=== PATIENT | female | born 1955 | race Two or more races ===

== ENCOUNTER → 2024-04-26 | Outpatient (CLI) | payer OTHER, MEDICAID, SELFPAY ==
[2024-04-26 13:46] LABS: Creatinine MALB Rnd Ur 151 mg/dL (30-125)
[2024-04-26 14:00] LABS: Microalbumin Creat Ratio 655 mg/gCrea (<30); Microalbumin, Random Urine 989 mg/L (0-300)
[2024-04-26 14:10] LABS: Glucose Estimated Average 131 mg/dL (80-131); Hemoglobin A1C 6.2 % Hgb (4.8-6.0)
== END | disposition home or self-care (01) ==
PROVIDERS: PCP Family Medicine; Referring Provider Family Medicine; Visit Provider Family Medicine
DX: E11.65 Type 2 diabetes mellitus with hyperglycemia (principal)
CPT/HCPCS: 36415; 82043; 82570; 83036

== ENCOUNTER → 2024-08-03 | Outpatient (CLI) | payer MEDICARE, MEDICAID, SELFPAY ==
[2024-08-03 09:52] LABS: Basophils # (Auto) 0.1 Thou/mm3 (0.0-0.2); Basophils % (Auto) 1 % (0-2.5); Eosinophils # (Auto) 0.3 Thou/mm3 (0.0-0.5); Eosinophils % (Auto) 3 % (0-10); Hematocrit 43.2 % (36.0-46.0); Hemoglobin 13.9 g/dL (12.0-16.0); Immature Granulocytes % (Auto) 0 % (0-0); Immature Granulocytes Auto 0.04 Thou/mm3 (0.00-0.00); Lymphocytes # (Auto) 2.2 Thou/mm3 (1.0-4.8); Lymphocytes % (Auto) 20 % (10-50); Mean Corpuscular HGB Conc 32.2 g/dl (31.0-37.0); Mean Corpuscular Hemoglobin 27.3 pg (25.0-35.0); Mean Corpuscular Volume 85 fL (80-100); Monocytes # (Auto) 0.7 Thou/mm3 (0.0-0.8); Monocytes % (Auto) 6 % (0-12); Neutrophils # (Auto) 7.8 Thou/mm3 (1.8-7.7); Neutrophils % (Auto) 70 % (37-80); Nucleated Red Blood Cell % 0 /100 WBC (0); Platelet Count 338 Thou/mm3 (140-440); RDW Standard Deviation 41.8 fL (36.4-46.3); Red Blood Count 5.09 Miln/mm3 (4.00-5.20); White Blood Count 11.1 Thou/mm3 (3.6-11.0)
[2024-08-03 10:05] LABS: Glucose Estimated Average 146 mg/dL (80-131); Hemoglobin A1C 6.7 % Hgb (4.8-6.0)
[2024-08-03 10:30] LABS: Alanine Aminotransferase 11 U/L (10-49); Albumin, Serum 4.3 gm/dL (3.4-4.8); Albumin/Globulin Ratio 1.4 (1.2-2.2); Alkaline Phosphatase 93 U/L (46-116); Anion Gap 8 (7-16); Aspartate Amino Transferase 13 U/L (0-34); BUN/Creatinine Ratio 18 Ratio (12-20); Bilirubin,Total 0.4 mg/dL (0.3-1.2); Blood Urea Nitrogen 14 mg/dL (9-23); Carbon Dioxide 28.1 mMol/L (20.0-31.0); Cardiac Risk Estimate 2.5 RATIO (3.7-5.6); Chloride 107 mMol/L (98-107); Cholesterol 108 mg/dL (132-200); Creatinine (Component) 0.8 mg/dL (0.6-1.3); Globulin 3.1 gm/dL (2.3-3.5); Glucose 192 mg/dL (74-106); HDL Cholesterol 43 mg/dL (40-60); LDL Cholesterol,Calculated 32 mg/dL (0-130); Osmolality,Calculated 290 (275-295); Potassium 3.7 mMol/L (3.4-5.1); Sodium 143 mMol/L (136-145); Thyroid Stimulating Hormone 0.78 uIU/mL (0.55-4.78); Total Protein 7.4 gm/dL (5.7-8.2); Triglycerides 166 mg/dL (30-150); eGFR > 60 See Note
== END | disposition home or self-care (01) ==
LOC: COPL 08:51
PROVIDERS: PCP Family Medicine; Referring Provider Family Medicine; Visit Provider Family Medicine
DX: I10 Essential (primary) hypertension (principal); E11.21 Type 2 diabetes mellitus with diabetic nephropathy
CPT/HCPCS: 36415; 80053; 80061; 83036; 84443; 85025

== ENCOUNTER → 2024-11-10 | Outpatient (CLI) | payer MEDICARE, MEDICAID, SELFPAY ==
[2024-11-10 16:57] LABS: Glucose Estimated Average 160 mg/dL (80-131); Hemoglobin A1C 7.2 % Hgb (4.8-6.0)
== END | disposition home or self-care (01) ==
LOC: COPL 15:05
PROVIDERS: PCP Family Medicine; Referring Provider Family Medicine; Visit Provider Family Medicine
DX: Z00.00 Encounter for general adult medical examination without abnormal findings (principal); E11.65 Type 2 diabetes mellitus with hyperglycemia
CPT/HCPCS: 36415; 82043; 82570; 83036

== ENCOUNTER → 2024-11-11 | Outpatient (CLI) | payer MEDICARE, SELFPAY ==
[2024-11-11 15:09] LABS: Creatinine MALB Rnd Ur 33 mg/dL (30-125); Microalbumin Creat Ratio 882 mg/gCrea (<30); Microalbumin, Random Urine 291 mg/L (0-300)
== END | disposition home or self-care (01) ==
LOC: SLDO 13:15
PROVIDERS: Referring Provider Family Medicine; Visit Provider Family Medicine
DX: Z00.00 Encounter for general adult medical examination without abnormal findings (principal); E11.65 Type 2 diabetes mellitus with hyperglycemia
CPT/HCPCS: 82043; 82570

== ENCOUNTER → 2024-11-15 | Outpatient (CLI) | payer MEDICARE, SELFPAY ==
[2024-11-15 12:00] LABS: OBS Performed By LAB; OBS QC OK? Yes
[2024-11-15 13:55] LABS: OBS Developer Lot # 551749; Occult Blood, Stool Negative (Negative); Occult Blood, Stool #2 Negative (Negative); Occult Blood, Stool #3 Positive (Negative)
== END | disposition home or self-care (01) ==
LOC: SLDO 10:40
PROVIDERS: PCP Family Medicine; Referring Provider Family Medicine; Visit Provider Family Medicine
DX: Z00.00 Encounter for general adult medical examination without abnormal findings (principal)
CPT/HCPCS: 82270

== ENCOUNTER → 2024-12-01 | Outpatient (CLI) | payer MEDICARE, MEDICAID, SELFPAY ==
--- NOTE | 2024-12-01 13:30 | XR_ITS ---
Examination: Bone densitometry Date and time of exam:December 01, 2024 1321 hours INDICATIONS: Hysterectomy age 53 levothyroxine 5 years Technique: Lumbar spine and hip total bone mineralization values of an calculated. Peak reference and age match control results have been displayed. Findings: Lumbar spine total bone mineralization is0.948 gm/cm2. This is 0.9 standard deviations below peak reference. This is 1.1 standard deviations above age-matched controls. Hip total bone mineralization is 0.799 gm/cm2 This is 1.2 standard deviations below peak reference. This is 0.2 standard deviations above age-matched controls Impression: There is normal mineralization based on lumbar spine measurements. There is osteopenia based on hip measurements Lumbar mineralization is increase 0.7% compared with August 29, 2022 Hip mineralization is decreased 4.6% compared with August 29, 2022
--- NOTE | 2024-12-01 14:00 | XR_ITS ---
Examination: Screening digital mammography, bilateral Computer aided detection 3-D breast Tomosynthesis, bilateral Date and time of exam: December 01, 2024 1259 hours Compared to mammograms dating to February 25, 2013 Indication: Screening Technique: Nonmagnified MLO, CC views of the breasts to been obtained, reconstructed from 3-D Tomosynthesis images. R2 computer aided detection program utilized for evaluation of suspicious masses and/or abnormal calcifications. 3-D Tomosynthesis images obtained. Findings: Scattered areas of fibroglandular density. Benign vascular calcifications No interval suspicious masses Impression: BI-RADS category II: Benign Findings. Recommend 1 year follow-up mammogram.
== END | disposition home or self-care (01) ==
PROVIDERS: PCP Family Medicine; Referring Provider Family Medicine; Visit Provider Family Medicine
DX: Z12.31 Encounter for screening mammogram for malignant neoplasm of breast (principal); R92.323 Mammographic fibroglandular density, bilateral breasts; R92.1 Mammographic calcification found on diagnostic imaging of breast; M85.88 Other specified disorders of bone density and structure, other site
CPT/HCPCS: 77063; 77067; 77080

== ENCOUNTER 2025-01-20 09:10 | Day surgery (SDC) | payer OTHER, SELFPAY ==
--- NOTE | 2025-01-19 08:56 | EKG_ITS ---
[facility] Test Date: 2025-01-19 Pat Name: SISSY CERDA Department: Room: - Gender: Female Manager Event: [place] : 1955 Requested By: Lazaro Cooper Order Number: [id number] Reading MD: Lazaro Cooper Measurements Intervals [place] Rate: 70 P: -45 NE: 140 QRS: -17 QRSD: 99 T: 101 QT: 385 QTc: 416 Interpretive Statements ECTOPIC ATRIAL RHYTHM MINIMAL VOLTAGE CRITERIA FOR LVH, CONSIDER NORMAL VARIANT [MEETS CRITERIA IN ONE OF: R(aVL), S(V1), R(V5), R(V5/V6)+S(V1)] SEPTAL MYOCARDIAL INFARCTION , PROBABLY OLD [40+ ms Q WAVE IN V1/V2] No previous ECG available for comparison /[id number]/S0/[id number].pdf
[2025-01-19 09:00] VITALS: BMI 43.0
[2025-01-19 09:11] VITALS: BMI 43.0
[2025-01-19 11:15] LABS: Basophils # (Auto) 0.1 Thou/mm3 (0.0-0.2); Basophils % (Auto) 1 % (0-2.5); Eosinophils # (Auto) 0.3 Thou/mm3 (0.0-0.5); Eosinophils % (Auto) 2 % (0-10); Hematocrit 46.6 % (36.0-46.0); Hemoglobin 15.1 g/dL (12.0-16.0); Immature Granulocytes Auto 0.04 Thou/mm3 (0.00-0.00); Lymphocytes # (Auto) 2.7 Thou/mm3 (1.0-4.8); Lymphocytes % (Auto) 22 % (10-50); Mean Corpuscular HGB Conc 32.4 g/dl (31.0-37.0); Mean Corpuscular Hemoglobin 27.7 pg (25.0-35.0); Mean Corpuscular Volume 86 fL (80-100); Monocytes # (Auto) 0.8 Thou/mm3 (0.0-0.8); Monocytes % (Auto) 7 % (0-12); Neutrophils # (Auto) 8.0 Thou/mm3 (1.8-7.7); Neutrophils % (Auto) 67 % (37-80); Nucleated Red Blood Cell # 0.00 Thou/mm3 (0.00-0.00); Nucleated Red Blood Cell % 0 /100 WBC (0); Platelet Count 310 Thou/mm3 (140-440); RDW Standard Deviation 43.7 fL (36.4-46.3); Red Blood Count 5.45 Miln/mm3 (4.00-5.20); White Blood Count 11.8 Thou/mm3 (3.6-11.0)
[2025-01-19 11:37] LABS: Alanine Aminotransferase 10 U/L (10-49); Albumin, Serum 4.4 gm/dL (3.4-4.8); Albumin/Globulin Ratio 1.4 (1.2-2.2); Alkaline Phosphatase 91 U/L (46-116); Anion Gap 10 (7-16); Aspartate Amino Transferase 14 U/L (0-34); BUN/Creatinine Ratio 22 Ratio (12-20); Bilirubin,Total 0.5 mg/dL (0.3-1.2); Blood Urea Nitrogen 20 mg/dL (9-23); Calcium 9.8 mg/dL (8.3-10.6); Calcium (Corrected) 9.8 mg/dL (8.5-10.1); Carbon Dioxide 27.4 mMol/L (20.0-31.0); Chloride 104 mMol/L (98-107); Creatinine (Component) 0.9 mg/dL (0.6-1.3); Estimated Creatinine Clearance 62.7 mL/min (>60); Globulin 3.1 gm/dL (2.3-3.5); Glucose 146 mg/dL (74-106); Osmolality,Calculated 286 (275-295); Potassium 4.0 mMol/L (3.4-5.1); Sodium 141 mMol/L (136-145); Total Protein 7.5 gm/dL (5.7-8.2); eGFR > 60 See Note
--- NOTE | 2025-01-19 14:05 | SUR.PREOP ---
Pt's notified to have pt come in at 1130 tomorrow for surgery.
--- NOTE | 2025-01-19 14:45 | SUR.PREOP ---
Pt was moved earlier, pt's notified to bring her at 0930.
[2025-01-20 09:40] VITALS: BP 162/86; PULSE 80; RESP 20; TEMP 36.3; O2SAT 96; BMI 41.3
[2025-01-20] MEDS: RINGERS LACTATED 1000 ML 1,000 ML 20 ML IV (09:40)
[2025-01-20 10:54] VITALS: BP 163/79; PULSE 86; RESP 16; TEMP 36.4; O2SAT 96
--- NOTE | 2025-01-20 10:54 | SUR.PHASEII ---
pt received from OR in recovery bay 4. pt asleep but responds to voice, breathing unlabored on room air. v/s stable. pt dressing to forehead cdi. report received from Nabila CROFT and Dr. Crowley.
[2025-01-20 11:00] VITALS: BP 157/77; PULSE 82; RESP 17; TEMP 36.4; O2SAT 96
[2025-01-20 11:05] VITALS: BP 154/82; PULSE 80; RESP 20; TEMP 36.4; O2SAT 95
--- NOTE | 2025-01-20 11:05 | PD.SUROPNT ---
Date of Procedure 01/20/25 Pre Op Diagnosis Forehead mass Frontal scalp mass Post Op Diagnosis Right forehead mass Frontal scalp mass Procedure Excision of right forehead mass Excision of frontal scalp mass Findings An approximately 2 cm cystic mass on the right forehead. Approximately 1-1/2 cm cystic mass in the frontal scalp Procedure Description Patient brought into the operating room in supine position. After administration of monitored anesthesia care, patient's right forehead and frontal scalp were shaved and prepped and draped in standard surgical manner. The procedure started on excision of right forehead mass. After administration of local anesthesia an approximately 3 cm elliptical incision was made and dissection was deepened soft tissue. The underlying cystic mass was circumferentially dissected off surrounding tissue and excised. Hemostasis achieved using electrocautery and the incision was closed with simple interrupted sutures using 2-0 Prolene. She had an additional mass in the frontal scalp that was excised in similar fashion. Topical antibiotic ointment applied. Patient tolerated procedure well. She was breathing spontaneously without difficulty and was transferred to postanesthesia care in stable condition. Instruments, needles and sponge counts were reported to be correct x 2. Anesthesia MAC and local Pathology / specimen Other (Right forehead mass. Frontal scalp mass) Estimated Blood Loss 5 Condition Stable Disposition PACU Surgeon Lazaro Cooper MD Surgical Staff Operation Date: 01/20/25 11:30 <No data on this case meets the specified criteria>
[2025-01-20 11:10] VITALS: BP 159/84; PULSE 81; RESP 18; TEMP 36.2; O2SAT 95
[2025-01-20 11:25] VITALS: BP 161/84; PULSE 83; RESP 20; TEMP 36.2; O2SAT 95
--- NOTE | 2025-01-20 11:55 | SUR.PHASEII ---
pt awake and alert, breathing unlabored on room air. v/s stable. pt dressing to forehead cdi. pt able to ambulate to wheelchair with steady gait. d/c instructions given with daughter Kelsie in room, all questions answered. pt d/c via wheelchair with all belongings.
== END 2025-01-20 11:55 | disposition home or self-care (01) ==
PROVIDERS: Anesthesiology; PCP Family Medicine; Referring Provider Surgery; Visit Provider Surgery
PROC: (CPT 11444; principal; 2025-01-20 11:30)
DX: L72.11 Pilar cyst (principal); Z01.810 Encounter for preprocedural cardiovascular examination; I25.2 Old myocardial infarction; E11.9 Type 2 diabetes mellitus without complications; I10 Essential (primary) hypertension; E03.9 Hypothyroidism, unspecified; Z79.899 Other long term (current) drug therapy; Z79.84 Long term (current) use of oral hypoglycemic drugs; Z79.890 Hormone replacement therapy
CPT/HCPCS: 11444; 36415; 80053; 85025; 93005; A4217; A4649; J0690; J2250; J2704; J2765; J3010; J3490; J7120; A9270

== ENCOUNTER → 2025-02-28 | Outpatient (CLI) | payer MEDICARE, MEDICAID, SELFPAY ==
[2025-02-28 08:34] LABS: Basophils # (Auto) 0.1 Thou/mm3 (0.0-0.2); Basophils % (Auto) 1 % (0-2.5); Eosinophils # (Auto) 0.3 Thou/mm3 (0.0-0.5); Eosinophils % (Auto) 2 % (0-10); Hematocrit 44.7 % (36.0-46.0); Hemoglobin 14.6 g/dL (12.0-16.0); Immature Granulocytes Auto 0.03 Thou/mm3 (0.00-0.00); Lymphocytes # (Auto) 2.6 Thou/mm3 (1.0-4.8); Lymphocytes % (Auto) 22 % (10-50); Mean Corpuscular HGB Conc 32.7 g/dl (31.0-37.0); Mean Corpuscular Hemoglobin 27.8 pg (25.0-35.0); Mean Corpuscular Volume 85 fL (80-100); Monocytes # (Auto) 0.9 Thou/mm3 (0.0-0.8); Monocytes % (Auto) 8 % (0-12); Neutrophils # (Auto) 7.6 Thou/mm3 (1.8-7.7); Neutrophils % (Auto) 66 % (37-80); Nucleated Red Blood Cell # 0.00 Thou/mm3 (0.00-0.00); Nucleated Red Blood Cell % 0 /100 WBC (0); Platelet Count 299 Thou/mm3 (140-440); RDW Standard Deviation 42.2 fL (36.4-46.3); Red Blood Count 5.26 Miln/mm3 (4.00-5.20); White Blood Count 11.5 Thou/mm3 (3.6-11.0)
[2025-02-28 09:19] LABS: Glucose Estimated Average 151 mg/dL (80-131); Hemoglobin A1C 6.9 % Hgb (4.8-6.0)
[2025-03-03 06:44] LABS: Fecal Globin Result NOT DETECTED (NOT DETECTED)
== END | disposition home or self-care (01) ==
LOC: COPL 07:41
PROVIDERS: PCP Family Medicine; Referring Provider Family Medicine; Visit Provider Family Medicine
DX: E11.65 Type 2 diabetes mellitus with hyperglycemia (principal); R19.5 Other fecal abnormalities
CPT/HCPCS: 36415; 82274; 83036; 85025; G0328